=== PATIENT | male | born 1955 | race Caucasian/White ===

== ENCOUNTER → 2018-12-02 | Outpatient (CLI) | payer BC ==
--- NOTE | 2018-12-02 16:33 | KCIC ---
EXAM: Carotid Doppler sonogram. HISTORY: Syncope. Dizziness. TECHNIQUE: Cerda scale and color Doppler sonographic evaluation of the neck with spectral waveform analysis was performed and static images are submitted for review. FINDINGS: There is mild atherosclerotic plaque within the bilateral carotid bulbs and internal carotid arteries and right external carotid artery. The peak systolic velocity within the right common carotid artery is 1 heart and 25 cm/sec. The peak systolic velocity within the right internal carotid artery is 54 cm/sec and the end diastolic velocity within the right internal carotid artery is 15 cm/sec. The right ICA/CCA ratio is 0.59. The peak systolic velocity within the left common carotid artery is 78 cm/sec. The peak systolic velocity within the left internal carotid artery is 65 cm/sec and the end diastolic velocity within the left internal carotid artery is 20 cm/sec. The left ICA/CCA ratio is 1.1. There is normal antegrade flow within both vertebral arteries. IMPRESSION: No Doppler evidence of hemodynamically significant stenosis within the carotid or vertebral arteries. PQRS Compliance Statement - Stenosis calculations for CT, MR and conventional angiography are based upon measurement of the distal ICA diameter in accordance with the NASCET methodology. Stenosis calculations for carotid ultrasound studies are derived from validated velocity criteria which are known to correlate with the NASCET methodology. Electronically signed by: Tracey Laar MD (12/02/2018 4:30 PM) [id number]
== END | disposition home or self-care (01) ==
LOC: KCIC US 14:31
PROVIDERS: ATTEND Family Medicine
DX: I65.23 Occlusion and stenosis of bilateral carotid arteries (principal); R55 Syncope and collapse
CPT/HCPCS: 93880

== ENCOUNTER → 2018-12-08 | Outpatient (CLI) | payer BC ==
--- NOTE | 2018-12-08 17:08 | PCVCIMAG ---
APPROVED REPORT Study performed: 12/08/2018 15:28:48 Exam: Stress Echocardiogram Indication: Near Syncope, , Hyperlipidemia, Hypertension Patient Location: Echo lab Stress Nurse: Chanelle Sun RN Status: routine Ht: 6 ft 0 in HR: 80 bpm BP: 124/86 mmHg Rhythm: Incomplete RBBB Medical History Medical History: Diabetes, Tobacco history (Current/Recent) Procedure The patient underwent an Exercise Stress Test using the Shay Protocol. Blood pressure, heart rate, and EKG were monitored. An Echocardiogram was performed by patient service technician pst in four stages in quad fashion. At peak stress, four selected images were obtained and placed side by side with resting images for comparison. Stress Test Details Stress Test: Exercise stress testing was performed using a Shay protocol. HR Resting HR: 80 bpmMax Heart Rate (APMHR): 159 bpm Max HR Achieved: 151 bpmTarget HR (85% APMHR): 135 bpm % of APMHR: 94 Recovery HR: 111 bpm HR response to stress: Normal HR response to stress BP Resting BP: 124/86 mmHg Max BP: 170/78 mmHg Recovery BP: 124/68 mmHg BP response to stress: Normal blood pressure response to stress. ECG Resting ECG: Sinus Rhythm, Incomplete RBBB Stress ECG: , Incomplete RBBB Recovery ECG: Sinus Rhythm, Incomplete RBBB Clinical Reason for Termination: Maximal effort Exercise duration: 6 min 00 sec Highest Stage Achieved: Stage 2: 2.5 mph at 12% grade. Exercise capacity: 7.00 METs Overall Exercise Capacity for Age: Average Stress ECG Conclusion ECG: Non-ischemic Clinical: Non-ischemic Pre-Stress Echo The resting Echocardiogram showed normal left ventricular contractility with an estimated Ejection Fraction of about >55%. The resting Echocardiogram demonstrated wall motion abnormality in the inferior basal wall . There is a small area of fixed hypokinesis in the inferior base. Post-Stress Echo The stress Echocardiogram showed normal left ventricular contractility with an estimated Ejection Fraction of about 60-65%. There is a small area of fixed hypokinesis in the inferior base. Clinical No clinical or ECG evidence for ischemia. Conclusion Clinical Response: Non-ischemic Exercise Capacity: Average Stress ECG Response: Non-ischemic Stress Echo Images: Non-ischemic The left ventricle is normal in size and wall thickness in both the rest and stress images. Other Information Study Quality: Good <Conclusion> The left ventricle is normal in size and wall thickness in both the rest and stress images.
== END | disposition home or self-care (01) ==
LOC: PCVCIMAG 15:43
PROVIDERS: ATTEND Internal Medicine Cardiovascular Disease
DX: I10 Essential (primary) hypertension (principal); E78.5 Hyperlipidemia, unspecified; R55 Syncope and collapse; E11.9 Type 2 diabetes mellitus without complications; Z87.891 Personal history of nicotine dependence
CPT/HCPCS: 93325; 93351

== ENCOUNTER → 2018-12-12 | Outpatient (CLI) | payer BC ==
--- NOTE | 2018-12-12 20:22 | PCVCIMAG ---
EXAM: DUPLEX ULTRASOUND OF THE RIGHT GROIN INDICATION: Groin swelling and pain. FINDINGS: No pseudoaneurysm is present. The common femoral artery and vein are patent. No arteriovenous fistula is seen. IMPRESSION: Study is negative for pseudoaneurysm. LOC:[place] [id number]
== END | disposition home or self-care (01) ==
LOC: PCVCIMAG 10:57
PROVIDERS: ATTEND Internal Medicine Cardiovascular Disease
DX: R10.31 Right lower quadrant pain (principal); I10 Essential (primary) hypertension; E78.5 Hyperlipidemia, unspecified; R55 Syncope and collapse
CPT/HCPCS: 93926